=== PATIENT | female | born 1990 | race Caucasian/White ===

== ENCOUNTER 2019-03-29 21:29 | Emergency (ER) | payer MEDICAID ==
[~2019-03-29] VITALS: Ht 170.2 cm; Wt 66.9 kg
[2019-03-29 21:31] VITALS: BP 135/87
[2019-03-29] MEDS ORDERED: HYDROcodone/APAP 5/325 TABLET ONE (22:03)
[2019-03-29] MEDS ORDERED: LIDOCAINE 1%-EPI 1:100K, 20ML ONE (22:03)
[2019-03-29] MEDS ORDERED: BENZOCAINE 20% SPRAY 0.5ML ONE (22:22)
[2019-03-29] MEDS ORDERED: LIDOCAINE 1%-EPI 1:100K, 20ML SQ ONE (22:30)
[2019-03-29] MEDS ORDERED: HYDROcodone/APAP 5/325 TABLET PO ONE (22:30)
[2019-03-29] MEDS ORDERED: BENZOCAINE 20% SPRAY 0.5ML TP ONE (22:30)
--- NOTE | 2019-03-29 22:55 | NUR ---
Patient/Caregiver given discharge instructions and they have confirmed that they understand the instructions. Patient ambulatory with steady gait.
== END 2019-03-29 23:05 | disposition home or self-care (01) ==
LOC: ED 22:50
DX: K04.7 Periapical abscess without sinus (principal)
CPT/HCPCS: 41800; 99283; J3490

== ENCOUNTER 2020-10-03 21:26 | Emergency (ER) | payer MEDICAID ==
[~2020-10-03] VITALS: Ht 172.7 cm; Wt 63.1 kg
[2020-10-03] MEDS ORDERED: HYDROcodone/APAP 5/325 TABLET PO ONE (22:00)
[2020-10-03] MEDS ORDERED: BUPIVACAINE 0.25% INFIL ONE (22:00)
[2020-10-03] MEDS ORDERED: CLINDAMYCIN 300 MG CAPSULE PO ONE (22:00)
[2020-10-03] MEDS ORDERED: LIDOCAINE 1%, 10ML INFIL ONE (22:00)
[2020-10-03] MEDS ORDERED: LIDOCAINE-MPF 1%, 5ML ONE (22:12)
[2020-10-03] MEDS ORDERED: CLINDAMYCIN 300 MG CAPSULE ONE (22:12)
[2020-10-03] MEDS ORDERED: HYDROcodone/APAP 5/325 TABLET ONE (22:12)
[2020-10-03] MEDS ORDERED: BUPIVACAINE 0.25% ONE (22:12)
--- NOTE | 2020-10-03 22:18 | NUR ---
PT CAME INTO ED TONIGHT FOR AN ABCESS. PT REPORTS "REAL HAD A CRACKED TOOTH FOR YEARS AND ITS NEVER BOTHERED ME BUT IT STARTED SWELLING 4-5 DAYS." PT HAD NOTICABLE SWELLING ON THE LEFT CHEEK SIDE. PT GROSS NEURO INTACT, DENIES VISION INVOLVEMENT. WCTM. CYNTHIA KING AT BS FOR EVAL AND POC
[2020-10-03 22:53] VITALS: BP 118/76
--- NOTE | 2020-10-03 22:53 | NUR ---
Patient given discharge instructions and they have confirmed that they understand the instructions. Patient ambulatory with steady gait. NAD, ALL ADDITIONAL QUESTIONS ANSWERED APPROPRIATELY, DENIES ADDITIONAL NEEDS AT THIS TIME. NO PERSONAL BELONGINGS LEFT IN ROOM AT THE TIME OF DC.
== END 2020-10-03 23:10 | disposition home or self-care (01) ==
LOC: ED 22:45
DX: K04.7 Periapical abscess without sinus (principal); F17.210 Nicotine dependence, cigarettes, uncomplicated
CPT/HCPCS: 41800; 99284